=== PATIENT | male | born 1970 | race Caucasian/White ===

== ENCOUNTER 2020-03-04 16:21 | Outpatient (REF) | payer OTHER, SELFPAY | END 2020-03-04 16:22 | disposition home or self-care (01) | LOC: HO.LAB 16:21 | PROVIDERS: Visit Provider Internal Medicine | DX: Z20.828 Contact with and (suspected) exposure to other viral communicable diseases (principal) | CPT/HCPCS: 87635 ==

== ENCOUNTER 2020-04-17 17:52 | Outpatient (REF) | payer OTHER, SELFPAY | END 2020-04-17 17:53 | disposition home or self-care (01) | LOC: HO.LAB 17:52 | PROVIDERS: Visit Provider Internal Medicine | DX: Z20.828 Contact with and (suspected) exposure to other viral communicable diseases (principal) | CPT/HCPCS: C9803; U0003 ==

== ENCOUNTER 2020-04-19 12:17 | Emergency (ER) | payer OTHER, SELFPAY ==
--- NOTE | 2020-04-19 12:42 | ED_ITS ---
HPI - URI/Sore Throat General Chief Complaint: General Medical Stated Complaint: COVID SYMPTOMS Time Seen by Provider: 04/19/20 12:25 Source: patient Mode of arrival: ambulatory Limitations: no limitations History of Present Illness HPI Narrative: Contact with friend 1 week ago who is COVID positive. Pt here with body aches, fatigue seeking COVID testing. MD elicited complaint: other (Body aches, fatigue) Onset (ago): day(s) Consistency: intermittent Severity: mild Able to tolerate fluids by mouth: Yes Exacerbating factors: nothing Relieving factors: nothing Context: sick contacts Associated symptoms: myalgias Treatments prior to arrival: none Related Data Allergies Allergy/AdvReac Type Severity Reaction Status Date / Time morphine [MORPHINE] Allergy Unknown DIFFICULTY Unverified 01/31/20 15:27 BREATHING Review of Systems Review of Systems: Yes all other systems are reviewed and are negative Constitutional: Constitutional: Reports no additional constitutional complaints, Reports body ache(s), Denies chills, Reports fatigue, Denies fever(s), Denies headache(s) and Denies weakness Eyes: Eyes: Reports no additional eye complaints and Denies change in vision ENT: Reports system reviewed and no additional complaints, except as documented, Denies dizziness, Denies headache(s), Denies nasal congestion, Denies nasal discharge and Denies neck pain Cardiovascular: Cardiovascular: Reports no additional cardiovascular co mplaints, Denies chest pain, Denies leg edema and Denies dyspnea Respiratory: Respiratory: Reports no additional respiratory complaints, Denies cough and Denies dyspnea Gastrointestinal: Gastrointestinal: Reports no additional gastrointestinal complaints, Denies abdominal pain, Denies diarrhea, Denies nausea and Denies vomiting Genitourinary: Genitourinary: Denies urinary incontinence Musculoskeletal: Musculoskeletal: Reports no additional musculoskeletal complaints, Denies back pain, Denies arthralgias, Denies joint swelling, Denies neck pain, Denies numbness and Denies tingling Integumentary/Breasts: Skin/Breast: Reports system reviewed and no additional complaints, except as docu and Denies rash Neurologic: Denies Abnormal speech present, Denies dizziness, Denies headache(s), Denies numbness, Denies tingling and Denies weakness Endocrine: Endocrine: Reports fatigue PMFSH Past Medical History Attestation statement: The following information was validated with the patient. Source: old records reviewed and nursing notes reviewed Social History Social History Advance Directives: No Advance Directives Information Provided: No Physical Exam Vital Signs: Vital Signs: Last Vital Signs Temp 99.3 F 04/19/20 12:57 Pulse 67 04/19/20 12:57 Resp 16 04/19/20 12:57 BP 101/65 04/19/20 12:57 Pulse Ox 98 04/19/20 12:57 Body Mass Index 28.2 Const: General: cooperative, healthy appearing, comfortable and no acute distress Orientation/consciousness: patient oriented x3 Limitations: no limitations HENMT: Head: Yes normal to inspection Ears: hearing grossly normal bilaterally General nose exam: Normal external nose present Face and sinus: Yes normal facial exam Mouth: Normal oral and palatal mucosa present Throat: Yes posterior oropharynx normal Eyes: General: appearance normal, both eyes and all related structures Pupils: Equal, round and reactive pupils present Neck: Neck: Yes normal visual inspection Chest: Chest palpation & inspection: normal inspection of the chest Resp: Effort & Inspection: normal respiratory effort Auscultation: clear to auscultation bilaterally Cardio: Rate: regular rate Rhythm: regular rhythm Peripheral pulses: Peripheral pulses 2+ throughout GI: Inspection: Yes normal to inspection Palpation (GI): Soft to palpation and nontender Auscultation: normal bowel sounds Back/Spine/Pelvis: Thoracic/Lumbar Spine: thoracic and lumbar spine normal to inspection Skin: General skin exam: no rashes or lesions noted Neuro: General: patient oriented x3, no focal motor deficits and normal sensation to monofilament Cranial nerves: Yes Equal, round and reactive pupils present Cognition (Neuro): normal cognition Speech: No Abnormal speech present Gait exam (Neuro): Normal gait present Motor exam (neuro): 5/5 motor strength present throughout Extrem: General: Yes normal to inspection Course Course Course Narrative: Patient has known COVID exposure. She is here with fatigue and body aches. Will send COVID testing. Exam otherwise is benign. Stable vital signs. MDM - URI/Sore Throat Medical Records Attestation: I reviewed the patient's medical records. Lab Data Attestation: I reviewed the patient's lab results. Labs: Lab Results 04/19/20 Range/Units 13:03 Coronavirus (PCR) NEGATIVE (Negative) Influenza Type A (PCR) NEGATIVE (Negative) Influenza Type B (PCR) NEGATIVE (Negative) RSV RNA Qual (PCR) NEGATIVE (Negative) Discharge Plan Discharge Clinical Impression: Viral syndrome Patient Disposition: Home, Self-Care Instructions: Viral Syndrome (ED) Additional Instructions: Take tylenol or motrin if able as needed for pain or fever. Stay well hydrated with fluids like water, gatorade and/or powerade. Wash hands at home. If living with others try to self isolate if possible. If unable wear a mask around others in your home and wash hands frequently. If COVID test is positive you will need to self isolate for a total of 14 days from when your symptoms started. You may return to work sooner if testing is negative and all symptoms resolved >72 hours. You should return to the emergency department for severe shortness of breath, chest pain or fever which does not respond to both tylenol and motrin at home. Referrals: Physician,None [Primary Care Provider] - 2 days Interventions: ED Discharge Assessment Last Done: 04/19/20 14:11 Discharge Date/Time: 04/19/20 14:12
[2020-04-19 12:57] VITALS: BP 101/65; PULSE 67; RESP 16; TEMP 37.4; O2SAT 98; BMI 28.2
[2020-04-19 14:26] LABS: Influenza A PCR NEGATIVE (Negative); Influenza B PCR NEGATIVE (Negative); Resp Syncy Virus RNA Qual PCR NEGATIVE (Negative); SARS COV2 PCR INHOUSE NEGATIVE (Negative)
== END 2020-04-19 14:12 | disposition home or self-care (01) ==
PROVIDERS: Nurse Practitioner Family; Emergency Provider Emergency Medicine Emergency Medical Services
DX: B34.9 Viral infection, unspecified (principal); Z20.828 Contact with and (suspected) exposure to other viral communicable diseases; R53.83 Other fatigue
CPT/HCPCS: 0241U; 99283

== ENCOUNTER 2021-06-04 11:35 | Outpatient (REF) | payer OTHER, SELFPAY ==
[2021-06-04 11:54] LABS: COVID-19 Test Negative (Negative)
== END 2021-06-04 11:36 | disposition home or self-care (01) ==
LOC: HO.LAB 11:35
PROVIDERS: Visit Provider Internal Medicine
DX: Z20.822 Contact with and (suspected) exposure to COVID-19 (principal)
CPT/HCPCS: 87635; C9803

== ENCOUNTER 2021-09-03 13:15 | Outpatient (REF) | payer OTHER, SELFPAY ==
[2021-09-03 14:03] LABS: COVID-19 Test Negative (Negative); IDNOW Serial# 16C4AD1C
[2021-09-03 14:04] LABS: Influenza A Positive (Negative); Influenza B2 Negative (Negative)
== END 2021-09-03 13:16 | disposition home or self-care (01) ==
LOC: HO.LAB 13:15
PROVIDERS: Visit Provider Physician Assistant Medical
DX: Z20.822 Contact with and (suspected) exposure to COVID-19 (principal)
CPT/HCPCS: 87502; 87635

== ENCOUNTER 2023-03-11 15:13 | Outpatient (REF) | payer OTHER, SELFPAY | END 2023-03-11 15:14 | disposition home or self-care (01) | LOC: HO.HOSX 15:13 | PROVIDERS: Visit Provider Physician Assistant | DX: Z13.89 Encounter for screening for other disorder (principal) ==